=== PATIENT | male | born 1995 | race Hispanic/Latino ===

== ENCOUNTER → 2021-01-02 | Outpatient (CLI) | payer OTHER ==
[~2021-01-02] MED LIST: METHACHOLINE KIT (J7674) INH ONE
--- NOTE | 2021-01-02 11:13 | PFTRPT ---
Height: 71.00 Inches Weight: 185.00 Lbs BSA: 2.04 Diagnosis: R05 DATE: 01/02/2021 Pre and post bronchodilator studies have excellent technical quality. Forced vital capacity is normal. FEV1 is in proportion. Obstructive index is therefore normal. Expiratory limit of the flow-volume loop normal. No significant bronchodilator response is identified. IMPRESSION: Normal baseline study. MTDD
== END ==
LOC: M CARPUL 10:34
PROVIDERS: ATTEND Nurse Practitioner Adult Health
DX: R05 Cough (principal)
CPT/HCPCS: 94070; J7674